=== PATIENT | male | born 1955 | race Caucasian/White ===

== ENCOUNTER 2021-03-15 01:36 | Emergency (ER) | payer BC, SELFPAY ==
--- NOTE | ~2021-03-15 | CT_ITS ---
EXAMINATION: CT ANGIOGRAM OF THE CHEST WITH AND WITHOUT CONTRAST (CT PULMONARY ANGIOGRAM FOR PE) CLINICAL INFORMATION: Reason for Exam Covid Pneumonia? PE? SOB COMPARISON: None TECHNIQUE: Prior to contrast administration, noncontrast localization images were obtained. Subsequently, multidetector volumetric imaging was performed from the thoracic inlet to below the diaphragms following the administration of 100 mL Omnipaque 350 intravenous contrast. No contrast reaction reported Sagittal, coronal, and MIP oblique sagittal reformatted images were obtained on the CT workstation, uploaded to PACS, and reviewed. This CT examination was performed using dose optimization techniques as appropriate, variously including the following: *Automated exposure control *Adjustment of mA and/or kV according to patient size (this includes techniques or standardized protocols for targeted exams where dose is matched to indication/reason for exam; i.e. extremities or head) *Use of iterative reconstruction technique Total exam dose-length product 598 mGy-cm FINDINGS: QUALITY OF STUDY/CONTRAST BOLUS: Satisfactory. PULMONARY ARTERIES: No central or segmental pulmonary emboli. THORACIC AORTA: No dissection. Mild aneurysmal dilatation of ascending aorta measuring up to 4.3 cm. LUNG: No focal consolidation, nodules or masses. Mild diffuse bronchial wall thickening without bronchiectasis. PLEURA: No pleural effusion or pneumothorax. MEDIASTINUM: Normal heart size. No pericardial effusion. No hilar or mediastinal lymphadenopathy. No evidence of septal bowing or right heart strain. CHEST WALL/AXILLA: No axillary or internal mammary lymphadenopathy. OSSEOUS STRUCTURES: No acute or suspicious osseous abnormality. UPPER ABDOMEN: Unremarkable. Simple cyst within the right kidney is benign and requires no further follow-up. Diverticulosis. No evidence of diverticulitis. CT/CT angio chest PE protocol IMPRESSION: * No pulmonary embolism. * Diffuse mild bronchial wall thickening compatible with bronchitis, as can be seen early in COVID. No pneumonitis is evident at this time. * Mild aneurysmal dilatation of ascending aorta measuring up to 4.3 cm. VTE: negative
--- NOTE | ~2021-03-15 | XR_ITS ---
EXAMINATION: XR CHEST CLINICAL INFORMATION: Pneumonia COMPARISON: None TECHNIQUE: Frontal view of the chest was obtained. FINDINGS: Streaky opacities within the lower lungs bilaterally could represent subsegmental atelectasis or infiltrate. No pleural effusion or pneumothorax. Normal heart size and pulmonary vascularity. No acute or suspicious osseous abnormalities. XR/XR chest 1V IMPRESSION: Bilateral lower lung subsegmental atelectasis. Infiltrate could also have this appearance, particularly at the left lung base.
[2021-03-15 01:45] VITALS: BP 196/130; PULSE 71; PULSE 76; RESP 30; TEMP 36.1; O2SAT 92; O2SAT 96; BMI 39.8
--- NOTE | 2021-03-15 01:48 | ECG_ITS ---
Test Reason : SOB Blood Pressure : / mmHG Vent. Rate : 071 BPM Atrial Rate : 071 BPM P-R Int : 170 ms QRS Dur : 080 ms QT Int : 404 ms P-R-T Axes : 069 033 031 degrees QTc Int : 439 ms Normal sinus rhythm Normal ECG No previous ECGs available Referred By: Jigar Gutierrez Electronically Signed By:JONO LUCIANO MD
[2021-03-15] MEDS: Albuterol/Iprat 2.5/0.5MG 3 ML AMPUL.NEB INHALE (01:54)
[2021-03-15 02:01] VITALS: PULSE 71; RESP 30; O2SAT 93
[2021-03-15] MEDS: Albuterol Sulfate (0.083%) 2.5 MG/3 ML VIAL.NEB INHALE (02:01)
[2021-03-15 02:03] LABS: Basophils Absolute Auto 0.1 X10*3/uL (0.0-0.2); Basophils Percent Auto 1.2 % (0-2); Eosinophils Absolute Auto 0.9 X10*3/uL (0.0-0.4); Eosinophils Percent Auto 10.9 % (0-4); Hemoglobin 16.1 g/dl (14.0-18.0); Imm Gran Abs Auto 0.02 X10*3/uL (0.00-0.03); Imm Gran Pct Auto 0.2 % (0.0-0.4); Lymphocytes Absolute Auto 2.9 X10*3/uL (1.2-4.9); Lymphocytes Percent Auto 33.8 % (20-40); MANUAL DIFF FLAG NO; Mean Corpuscular HGB Conc 33.5 g/dl (31.0-36.0); Mean Corpuscular Hemoglobin 32.1 pg (27.0-33.0); Mean Corpuscular Volume 95.6 fL (80.0-98.0); Mean Platelet Volume 9.7 fL (9.4-12.4); Monocytes Percent Auto 12.2 % (2-11); Neutrophils Absolute Auto 3.5 x10*3/uL (2.0-8.3); Neutrophils Percent Auto 41.7 % (45-73); Platelet Count 200 X10*3/uL (160-400); Red Blood Count 5.02 X10*6/uL (4.60-5.80); Red Cell Distribution Width 12.9 % (11.0-16.0); White Blood Count 8.5 X10*3/uL (4.8-10.8)
[2021-03-15 02:10] LABS: Prothrombin Time 11.3 SEC (9.9-13.0)
[2021-03-15 02:13] LABS: Partial Thromboplastin Time 34.1 SEC (24.1-38.0)
[2021-03-15 02:22] LABS: COVID-19 Test Negative (Negative); IDNOW Serial# 9DD0AD1C
[2021-03-15 02:25] LABS: B Type Natriuretic Peptide 29 pg/mL (<100); Troponin-I High Sensitivity 5.8 ng/L (<3.5-35.0)
[2021-03-15 02:26] LABS: Alanine Aminotransferase 31 U/L (0-40); Albumin Level 3.7 g/dL (3.5-5.0); Alkaline Phosphatase 64 U/L (39-117); Anion Gap 11 (12-20); Aspartate Amino Transferase 23 U/L (5-37); Bilirubin Total 0.3 mg/dL (0.0-1.0); Blood Urea Nitrogen 21 mg/dL (9-16); Carbon Dioxide 27 mmol/L (22-29); Chloride 106 mmol/L (96-108); Creatinine Clr Calc Pharmacy 81.3; Estimated Glomerular Filt Rate 52; Glucose Random 156 mg/dL (60-115); Potassium 4.4 mmol/L (3.3-5.1); Sodium 140 mmol/L (135-145); Total Protein 6.4 g/dL (6.5-8.0)
[2021-03-15] MEDS: methylPREDNISolone Sod Succ 125 MG/2 ML VIAL IVPUSH (02:57)
[2021-03-15] MEDS: Magnesium Sulfate/H2O 2 GM/50 ML PIGGYBACK IV (02:57)
--- NOTE | 2021-03-15 03:06 | ED_ITS ---
HPI - Asthma General Chief Complaint: Asthma Stated Complaint: sob Time Seen by Provider: 03/15/21 01:47 Source: patient Mode of arrival: ambulatory Limitations: no limitations History of Present Illness HPI Narrative: C5 year male presents to ED for asthma exacerbation. Patient states shortness of breath began last night. Patient recently exposed to COVID by positive family members. Patient denies any swelling of lower extremities, calf pain, coughing up blood, Fever, body aches, or chills. Related Data Allergies Allergy/AdvReac Type Severity Reaction Status Date / Time No Known Allergies Allergy Verified 03/15/21 01:47 Review of Systems Review of Systems: Yes all other systems are reviewed and are negative PMFSH Social History Social History Advance Directives: No Physical Exam Vital Signs: Vital Signs: Last Vital Signs Temp 97 F 03/15/21 01:45 Pulse 71 03/15/21 02:01 Resp 30 H 03/15/21 02:01 Pulse Ox 92 03/15/21 01:45 Oxygen Flow Rate 2.5 03/15/21 01:45 BMI result Body Mass Index 39.8 Const: General: cooperative, healthy appearing, comfortable, no acute distress, well developed, alert, awake and Physically active Orientation/consciousness: patient oriented x3 HENMT: Head: Yes normal to inspection, Yes No palpable skull fracture present, Yes normocephalic, Yes atraumatic and No abrasion Eyes: General: appearance normal, both eyes and all related structures Neck: Neck: Yes normal visual inspection, Yes full ROM, Yes no lympha denopathy, Yes no meningeal signs, Yes trachea midline, Yes supple, No anterior neck swelling and No tender Chest: Chest palpation & inspection: normal inspection of the chest and normal palpation of entire chest wall Resp: Effort & Inspection: normal respiratory effort and able to speak in complete sentences Auscultation: wheezes expiratory wheezes Cardio: Jugular venous distension: no JVD Heart sounds: S1 normal heart sound present GI: Inspection: Yes normal to inspection and No abdominal wall ecchymosis Palpation (GI): Soft to palpation, not firm, nontender, no guarding and not rigid : General: No CVA tenderness and Yes no CVA tenderness Back/Spine/Pelvis: Back: no CVA tenderness, No CVA tenderness and No back tenderness Skin: General skin exam: no rashes or lesions noted and elasticity normal Neuro: General: patient oriented x3, gait normal, no meningeal signs and CN's II-XI intact bilaterally Cranial nerves: Yes CN's II-XII intact bilaterally Extrem: Other: Lower extremities negative for swelling, pitting edema, or calf tenderness General: Yes normal to inspection and Yes full ROM Psych: Appearance: grossly normal, well kempt and not disheveled Course Course Course Narrative: labs, EKG, asthma meds, and chest x-ray ordered Reevaluation(s) Reevaluation #1: EKG negative STEMI. BNP negative. COVID Negative. Room air O2 sat 91%. Given 2 rounds of albuterol, Solu-Medrol, and magnesium. X-ray showed possible infiltrate versus atelectasis. patient will be sent for a chest CTA to rule out pneumonia and PE. SIgned out to Dr. Palumbo Time: 03:11 MDM - Asthma MDM Narrative Medical decision making narrative: asthma exacerbation Lab Data Result diagrams: 03/15/21 01:57 03/15/21 01:57 Labs: Lab Results 03/15/21 03/15/21 03/15/21 Range/Units 01:57 01:57 01:57 WBC 8.5 (4.8-10.8) X10*3/uL RBC 5.02 (4.60-5.80) X10*6/uL Hgb 16.1 (14.0-18.0) g/dl Hct 48.0 (42.0-52.0) % MCV 95.6 (80.0-98.0) fL MCH 32.1 (27.0-33.0) pg MCHC 33.5 (31.0-36.0) g/dl RDW 12.9 (11.0-16.0) % Plt Count 200 (160-400) X10*3/uL MPV 9.7 (9.4-12.4) fL Immature Gran % (Auto) 0.2 (0.0-0.4) % Neut % (Auto) 41.7 L (45-73) % Lymph % (Auto) 33.8 (20-40) % [place] % (Auto) 12.2 H (2-11) % Eos % (Auto) 10.9 H (0-4) % Baso % (Auto) 1.2 (0-2) % Lymph # (Auto) 2.9 (1.2-4.9) X10*3/uL [place] # (Auto) 1.0 (0.1-1.2) X10*3/uL Eos # (Auto) 0.9 H (0.0-0.4) X10*3/uL Baso # (Auto) 0.1 (0.0-0.2) X10*3/uL Abs Immat Gran (auto) 0.02 (0.00-0.03) X10*3/uL Absolute Neuts (auto) 3.5 (2.0-8.3) x10*3/uL Absolute Nucleated RBC 0.000 (0.0-0.012) X10*3/uL Nucleated RBC % (auto) 0.0 (0.0-0.2) /100WBC PT 11.3 (9.9-13.0) SEC INR 1.0 (0.9-1.1) APTT 34.1 (24.1-38.0) SEC Sodium 140 (135-145) mmol/L Potassium 4.4 (3.3-5.1) mmol/L Chloride 106 (96-108) mmol/L Carbon Dioxide 27 (22-29) mmol/L Anion Gap 11 L (12-20) BUN 21 H (9-16) mg/dL Creatinine 1.37 (0.5-1.4) mg/dL Estim Creat Clear Calc 81.3 Estimated GFR 52 Random Glucose 156 H (60-115) mg/dL Calcium 9.0 (8.4-10.2) mg/dL Total Bilirubin 0.3 (0.0-1.0) mg/dL AST 23 (5-37) U/L ALT 31 (0-40) U/L Alkaline Phosphatase 64 (39-117) U/L Troponin I High Sens (<3.5-35.0) ng/L B-Natriuretic Peptide (<100) pg/mL Total Protein 6.4 L (6.5-8.0) g/dL Albumin 3.7 (3.5-5.0) g/dL COVID-19 ([facility]) (Negative) COVID-19 Clin Com 03/15/21 03/15/21 Range/Units 01:57 01:57 WBC (4.8-10.8) X10*3/uL RBC (4.60-5.80) X10*6/uL Hgb (14.0-18.0) g/dl Hct (42.0-52.0) % MCV (80.0-98.0) fL MCH (27.0-33.0) pg MCHC (31.0-36.0) g/dl RDW (11.0-16.0) % Plt Count (160-400) X10*3/uL MPV (9.4-12.4) fL Immature Gran % (Auto) (0.0-0.4) % Neut % (Auto) (45-73) % Lymph % (Auto) (20-40) % [place] % (Auto) (2-11) % Eos % (Auto) (0-4) % Baso % (Auto) (0-2) % Lymph # (Auto) (1.2-4.9) X10*3/uL [place] # (Auto) (0.1-1.2) X10*3/uL Eos # (Auto) (0.0-0.4) X10*3/uL Baso # (Auto) (0.0-0.2) X10*3/uL Abs Immat Gran (auto) (0.00-0.03) X10*3/uL Absolute Neuts (auto) (2.0-8.3) x10*3/uL Absolute Nucleated RBC (0.0-0.012) X10*3/uL Nucleated RBC % (auto) (0.0-0.2) /100WBC PT (9.9-13.0) SEC INR (0.9-1.1) APTT (24.1-38.0) SEC Sodium (135-145) mmol/L Potassium (3.3-5.1) mmol/L Chloride (96-108) mmol/L Carbon Dioxide (22-29) mmol/L Anion Gap (12-20) BUN (9-16) mg/dL Creatinine (0.5-1.4) mg/dL Estim Creat Clear Calc Estimated GFR Random Glucose (60-115) mg/dL Calcium (8.4-10.2) mg/dL Total Bilirubin (0.0-1.0) mg/dL AST (5-37) U/L ALT (0-40) U/L Alkaline Phosphatase (39-117) U/L Troponin I High Sens 5.8 (<3.5-35.0) ng/L B-Natriuretic Peptide 29 (<100) pg/mL Total Protein (6.5-8.0) g/dL Albumin (3.5-5.0) g/dL COVID-19 ([facility]) Negative (Negative) COVID-19 Clin Com See Note ECG Data Interpretation: normal sinus rhythm. Normal EKG. Ventricular rate 71. Peer into the 170. QRS 80. QTC 439. Negative STEMI Discharge Plan Discharge Clinical Impression: Asthma with acute exacerbation Patient Disposition: Still a Patient
[2021-03-15 04:11] VITALS: BP 122/71; PULSE 59; RESP 17; TEMP 36.4; O2SAT 98
[2021-03-15 04:42] LABS: Troponin-I High Sensitivity 6.4 ng/L (<3.5-35.0)
[2021-03-15] MEDS: iohexoL 350 MG/ML 100 ML INFUS..BTL IV (05:09)
[2021-03-15 06:50] VITALS: BP 137/83; PULSE 65; RESP 22; TEMP 36.6; O2SAT 97
== END 2021-03-15 06:54 | disposition home or self-care (01) ==
PROVIDERS: Physician Assistant; Emergency Provider Emergency Medicine; PCP Family Medicine
DX: J45.901 Unspecified asthma with (acute) exacerbation (principal); Z20.822 Contact with and (suspected) exposure to COVID-19
CPT/HCPCS: 36415; 71045; 71275; 80053; 83880; 84484; 85025; 85610; 85730; 87635; 93005; 94640; 96365; 96366; 96375; 99284; J2930; J3475; Q9967

== ENCOUNTER 2021-05-01 03:40 | Inpatient (IN) | payer BC, SELFPAY ==
[2021-05-01] VITALS (9 sets, daily range): BP systolic 141–182; BP diastolic 80–111; PULSE 65–82; RESP 15–26; TEMP 36.6; O2SAT 94–98; BMI 39.0
--- NOTE | ~2021-05-01 | XR_ITS ---
EXAMINATION: XR CHEST CLINICAL INFORMATION: Shortness of breath COMPARISON: 03/15/2021 TECHNIQUE: Frontal view of the chest was obtained. FINDINGS: Normal symmetric lung volumes. No parenchymal consolidation. No pleural effusion. No pneumothorax. Cardiomediastinal silhouette and pulmonary vascularity are within normal limits. No acute osseous abnormalities. XR/XR chest 1V IMPRESSION: Unremarkable examination.
--- NOTE | 2021-05-01 04:02 | ED_ITS ---
HPI - Asthma General Chief Complaint: Upper Respiratory Symptoms Stated Complaint: Diff Breathing Time Seen by Provider: 05/01/21 04:02 Source: patient Mode of arrival: EMS History of Present Illness HPI Narrative: 65-year-old male with history of hypertension and asthma denies being a smoker who is brought in by EMS for onset of asthma exacerbation at 02:30 in the morning without associated chest pain/palpitations, GI or symptoms. Patient states he is fully COVID-19 vaccinated. Related Data Previous Rx's Medication Instructions Recorded azithromycin 250 mg tablet See Rx Instructions .ROUTE 03/15/21 (Zithromax Z-Andrews) .COMPLEX #6 tab prednisone 10 mg tablet 10 mg PO BID #10 tab 03/15/21 Allergies Allergy/AdvReac Type Severity Reaction Status Date / Time No Known Allergies Allergy Verified 03/15/21 01:47 Review of Systems Review of Systems: Pertinent positives and negatives as stated in HPI 10 point review of systems is otherwise negative. PMFSH Past Medical History Source: nursing notes reviewed Medical History Asthma Hypertension Social History Social History Patient Tobacco Use Status: Never used Tobacco Advance Directives: No Physical Exam Vital Signs: Vital Signs: Last Vital Signs Temp 97.8 F 05/01/21 03:57 Pulse 70 05/01/21 04:19 Resp 25 H 05/01/21 04:19 BP 182/111 H 05/01/21 03:57 Pulse Ox 97 05/01/21 03:57 BMI result Body Mass Index 39.0 VITAL SIGNS: Reviewed. GENERAL: Well developed, well nourished, in no acute distress. HEAD: Normocephalic/atraumatic EYES: PERRLA, EOMI EARS: Ext canals without abnormality OROPHARYNX: no oral lesions noted, posterior pharynx clear NECK: Supple, no adenopathy LUNGS: Decreased breath sounds, minimal expiratory wheeze, tachypnea is present. SpO2<97> CARDIOVASCULAR: Regular rate and rhythm without noted murmurs ABDOMEN: Soft, non-tender, non-distended with bowel sounds. SKIN: Inspection of the skin reveals no rashes NEUROLOGIC: Alert and oriented x 4. Strength and sensation to light touch were grossly intact x 4. Course Course Course Narrative: 65-year-old male with history and clinical presentation consistent with acute asthma exacerbation and less likely to be pneumonia or cardiac in etiology. Review of all investigations otherwise negative for acute findings other than acute asthma exacerbation. Patient has eosinophils noted to be over 9. This case was discussed with the inpatient hospitalist who accepts admission. MDM - Asthma Lab Data Result diagrams: 05/01/21 04:08 05/01/21 04:08 Labs: Lab Results 05/01/21 05/01/21 05/01/21 Range/Units 04:08 04:08 04:08 WBC 8.1 (4.8-10.8) X10*3/uL RBC 5.09 (4.60-5.80) X10*6/uL Hgb 16.5 (14.0-18.0) g/dl Hct 48.6 (42.0-52.0) % MCV 95.5 (80.0-98.0) fL MCH 32.4 (27.0-33.0) pg MCHC 34.0 (31.0-36.0) g/dl RDW 13.2 (11.0-16.0) % Plt Count 184 (160-400) X10*3/uL MPV 9.6 (9.4-12.4) fL Immature Gran % (Auto) 0.2 (0.0-0.4) % Neut % (Auto) 51.0 (45-73) % Lymph % (Auto) 28.0 (20-40) % [place] % (Auto) 10.5 (2-11) % Eos % (Auto) 9.2 H (0-4) % Baso % (Auto) 1.1 (0-2) % Lymph # (Auto) 2.3 (1.2-4.9) X10*3/uL [place] # (Auto) 0.9 (0.1-1.2) X10*3/uL Eos # (Auto) 0.7 H (0.0-0.4) X10*3/uL Baso # (Auto) 0.1 (0.0-0.2) X10*3/uL Abs Immat Gran (auto) 0.02 (0.00-0.03) X10*3/uL Absolute Neuts (auto) 4.1 (2.0-8.3) x10*3/uL Absolute Nucleated RBC 0.000 (0.0-0.012) X10*3/uL Nucleated RBC % (auto) 0.0 (0.0-0.2) /100WBC Sodium 140 (135-145) mmol/L Potassium 4.3 (3.3-5.1) mmol/L Chloride 106 (96-108) mmol/L Carbon Dioxide 28 (22-29) mmol/L Anion Gap 10 L (12-20) BUN 27 H (9-16) mg/dL Creatinine 1.33 (0.5-1.4) mg/dL Estim Creat Clear Calc 82.9 Estimated GFR 54 Random Glucose 170 H (60-115) mg/dL Calcium 8.8 (8.4-10.2) mg/dL Total Bilirubin 0.4 (0.0-1.0) mg/dL AST 22 (5-37) U/L ALT 27 (0-40) U/L Alkaline Phosphatase 62 (39-117) U/L Total Protein 6.4 L (6.5-8.0) g/dL Albumin 3.7 (3.5-5.0) g/dL COVID-19 ([facility]) Negative (Negative) COVID-19 Clin Com See Note ECG Data Attestation: I personally reviewed and interpreted this ECG as follows: Prior ECG tracings: available for review Interpretation: NSR, HR-71, no STEMI, W[place]/QRS/QTC are within normal limits. Critical Care Time Critical Care Time Critical Care Time: Yes Total Critical Care Time: 30 Attestation: I personally attest to this time spent taking care of the patient. Discharge Plan Discharge Clinical Impression: Acute asthma exacerbation, Hypertension Patient Disposition: Admitted As Inpatient Prescriptions: No Action azithromycin [Zithromax Z-Andrews] 250 mg tablet See Rx Instructions .ROUTE .COMPLEX Qty: 6 0RF Rx Instructions: For 250 mg dose pack: take 500 mg today (day 1), then 250 mg for 4 days (days 2-5) prednisone 10 mg tablet 10 mg PO BID Qty: 10 0RF
--- NOTE | 2021-05-01 04:03 | ECG_ITS ---
Test Reason : SOB Blood Pressure : / mmHG Vent. Rate : 071 BPM Atrial Rate : 071 BPM P-R Int : 158 ms QRS Dur : 086 ms QT Int : 416 ms P-R-T Axes : 070 028 032 degrees QTc Int : 452 ms Normal sinus rhythm Normal ECG When compared with ECG of 15-MAR-2021 01:45, No significant change was found Referred By: Francoise Koenig Electronically Signed By:MARCELO RODRÍGUEZ
[2021-05-01] MEDS: methylPREDNISolone Sod Succ 125 MG/2 ML VIAL IVPUSH (04:09)
[2021-05-01] MEDS: Magnesium Sulfate/H2O 2 GM/50 ML PIGGYBACK IV (04:09)
[2021-05-01 04:15] LABS: Basophils Absolute Auto 0.1 X10*3/uL (0.0-0.2); Basophils Percent Auto 1.1 % (0-2); Eosinophils Absolute Auto 0.7 X10*3/uL (0.0-0.4); Eosinophils Percent Auto 9.2 % (0-4); Hematocrit 48.6 % (42.0-52.0); Hemoglobin 16.5 g/dl (14.0-18.0); Imm Gran Abs Auto 0.02 X10*3/uL (0.00-0.03); Imm Gran Pct Auto 0.2 % (0.0-0.4); Lymphocytes Absolute Auto 2.3 X10*3/uL (1.2-4.9); MANUAL DIFF FLAG NO; Mean Corpuscular Hemoglobin 32.4 pg (27.0-33.0); Mean Corpuscular Volume 95.5 fL (80.0-98.0); Mean Platelet Volume 9.6 fL (9.4-12.4); Monocytes Absolute Auto 0.9 X10*3/uL (0.1-1.2); Monocytes Percent Auto 10.5 % (2-11); Neutrophils Absolute Auto 4.1 x10*3/uL (2.0-8.3); Platelet Count 184 X10*3/uL (160-400); Red Blood Count 5.09 X10*6/uL (4.60-5.80); Red Cell Distribution Width 13.2 % (11.0-16.0); White Blood Count 8.1 X10*3/uL (4.8-10.8)
[2021-05-01] MEDS: Albuterol Sulfate (0.083%) 2.5 MG/3 ML VIAL.NEB 10 MG INHALE ×2 (04:15→05:33)
[2021-05-01 04:28] LABS: COVID-19 Test Negative (Negative)
[2021-05-01 04:30] LABS: Alanine Aminotransferase 27 U/L (0-40); Albumin Level 3.7 g/dL (3.5-5.0); Alkaline Phosphatase 62 U/L (39-117); Anion Gap 10 (12-20); Aspartate Amino Transferase 22 U/L (5-37); Bilirubin Total 0.4 mg/dL (0.0-1.0); Blood Urea Nitrogen 27 mg/dL (9-16); Calcium 8.8 mg/dL (8.4-10.2); Carbon Dioxide 28 mmol/L (22-29); Chloride 106 mmol/L (96-108); Creatinine Clr Calc Pharmacy 82.9; Estimated Glomerular Filt Rate 54; Glucose Random 170 mg/dL (60-115); Potassium 4.3 mmol/L (3.3-5.1); Sodium 140 mmol/L (135-145); Total Protein 6.4 g/dL (6.5-8.0)
--- NOTE | 2021-05-01 04:50 | P.HPHOSP_ITS ---
History of Present Illness Date of Service: 05/01/21 Chief Complaint: sob 65-year-old male with a past medical history of hypertension, asthma, ascending aortic aneurysm measuring 4.3 cm; presented to the hospital today with a chief complaint of acute onset shortness of breath. Patient reports that he was doing fine until he went to bed; and workup showed only in the medical having acute shortness of breath, unable to breathe; tried his nebulizers with no improvement; subsequently came to the ER for further evaluation. Denies any fever chills cough. Denies any chest pain palpitations lightheadedness or dizziness. Denies any recent travel or sick contacts. Mentioned that he has been COVID-19 vaccinated Denies any nausea vomiting diarrhea. Denies any urinary symptoms. Review of all other systems is negative except mentioned above ER course: Per ER team patient on presentation noted to be significantly tight on examination; mild respiratory distress; given hour long nebulizer treatment, steroids; placed on supplemental oxygen; patient improved symptomatically; chest x-ray showed no acute findings; labs essentially benign; admitted to the [facility] for [facility] Medical History Asthma Hypertension Social History Patient Tobacco Use Status: Never used Tobacco Advance Directives: No Meds Allergies Allergy/AdvReac Type Severity Reaction Status Date / Time No Known Allergies Allergy Verified 03/15/21 01:47 Active Medications: Current Medications Acetaminophen (Acetaminophen 325 Mg Tablet) 650 mg PO Q6H PRN PRN Reason: Pain, Mild (Pain Scale 1-3) Albuterol/Ipratropium (Albuterol/Iprat 2.5/0.5mg 3 Ml Ampul.Neb) 3 ml INHALE RQ4H WHILE AWAKE GUILHERME Albuterol/Ipratropium (Albuterol/Iprat 2.5/0.5mg 3 Ml Ampul.Neb) 3 ml INHALE RQ4H PRN PRN Reason: Shortness of Breath/Wheezing Enoxaparin Sodium (Enoxaparin Sodium 40 Mg/0.4 Ml Syringe) 40 mg SUBCUT Q24H GUILHERME Famotidine (Famotidine/Pf 20 Mg/2 Ml Vial) 20 mg IVPUSH BID GUILHERME Magnesium Sulfate (Magnesium Sulfate/H2o) 2 gm in 50 mls @ 25 mls/hr IV ONCE ONE Stop: 05/01/21 06:01 Last Infusion: 05/01/21 04:47 Dose: Infused Documented by: Labetalol HCl (Labetalol Hcl 100 Mg/20 Ml Vial) 10 mg IVPUSH Q4H PRN PRN Reason: Sbp > 140 Melatonin (Melatonin 3 Mg Tablet) 6 mg PO BEDTIME PRN PRN Reason: Insomnia Methylprednisolone Sodium Succinate (Methylprednisolone Sod Succ 40 Mg/Ml Vial) 40 mg IVPUSH Q6H GUILHERME Morphine Sulfate (Morphine Sulfate 4 Mg/Ml Cartridge) 1 mg IVPUSH Q4H PRN; Protocol PRN Reason: Pain, SOB Senna (Sennosides 8.6 Mg Tablet) 17.2 mg PO BEDTIME PRN PRN Reason: Constipation Sodium Chloride (0.9 % Sodium Chloride Flush 3 Ml Syringe) 3 ml IVFLUSH QSHIFT [facility] Home Medications Medication Instructions Recorded Confirmed Last Taken Type Flonase 2 spray BID 05/01/21 05/01/21 Unknown History Symbicort 80 mcg BID 05/01/21 05/01/21 Unknown History carvedilol 25 mg tablet 1 tab PO BID 05/01/21 05/01/21 Unknown History fosinopril 20 mg tablet 1 tab PO DAILY 05/01/21 05/01/21 Unknown History Physical Exam Vital Signs and Narrative: Vital Signs: Last Vital Signs Temp 97.8 F 05/01/21 03:57 Pulse 70 05/01/21 04:19 Resp 25 H 05/01/21 04:19 BP 182/111 H 05/01/21 03:57 Pulse Ox 97 05/01/21 03:57 BMI result Body Mass Index 39.0 Gen: Appears be in no acute distress; patient was tachypneic on presentation; but not tachycardic; respiratory rate currently improved to 15 after nebulizer and steroid treatment. HEENT: NCAT, Moist mucosa. Pulmonary: Slightly diminished at the bases; currently moving a; able to finish sentences. On supplemental oxygen. Not in respiratory distress. CVS: Normal S1-S2 Abdomen: BS+, Soft, Nontender Extremities: Warm well perfused Neuro: Alert and awake. Results Labs CBC and Chem 7: 05/01/21 04:08 05/01/21 04:08 Labs: Laboratory Results - last 24 hr 05/01/21 05/01/21 05/01/21 04:08 04:08 04:08 MCV 95.5 MCH 32.4 MCHC 34.0 RDW 13.2 Plt Count 184 MPV 9.6 Immature Gran % (Auto) 0.2 Neut % (Auto) 51.0 Lymph % (Auto) 28.0 [place] % (Auto) 10.5 Eos % (Auto) 9.2 H Baso % (Auto) 1.1 Lymph # (Auto) 2.3 [place] # (Auto) 0.9 Eos # (Auto) 0.7 H Baso # (Auto) 0.1 Abs Immat Gran (auto) 0.02 Absolute Neuts (auto) 4.1 Absolute Nucleated RBC 0.000 Nucleated RBC % (auto) 0.0 Anion Gap 10 L Estim Creat Clear Calc 82.9 Estimated GFR 54 Random Glucose 170 H Calcium 8.8 Total Bilirubin 0.4 AST 22 ALT 27 Alkaline Phosphatase 62 Total Protein 6.4 L Albumin 3.7 COVID-19 ([facility]) Negative COVID-19 Clin Com See Note Assessment and Plan Plan 65-year-old male with a past medical history of asthma, hypertension, aortic aneurysm presented to the hospital with a chief complaint of shortness of breath. Noted to be in acute asthma exacerbation. Admitted for further management. Acute asthma exacerbation: Patient was very tight on presentation; currently improving. Able to speak in full sentences. Continue Solu-Medrol IV Nebulizations standing and p.r.n. Supplemental oxygen p.r.n. Patient had a recent CT scan in March which showed no evidence of pulmonary embolism; noted bronchitis(patient finished course of antibiotics and steroids); Hypertensive urgency: Continue home carvedilol. Patient also has history of aortic aneurysm measuring 4.[address] cm [address] scan in March of 2021. Labetalol p.r.n with a goal blood pressure of less than 140/90 DVT prophylaxis: Lovenox Code status: Full code Quality Stroke Does the patient have a stroke diagnosis?: No VTE Prior VTE?: No VTE Risk Level:: Medical - moderate - high VTE Device Contraindication: Treatment Not Indicated VTE Drug Contraindication: N/A - Med Ordered
[2021-05-01] MEDS: Enoxaparin Sodium 40 MG/0.4 ML SYRINGE SUBCUT (05:44)
[2021-05-01] MEDS: 0.9 % Sodium Chloride Flush 3 ML SYRINGE IVFLUSH (07:39)
[2021-05-01] MEDS: Albuterol/Iprat 2.5/0.5MG 3 ML AMPUL.NEB INHALE ×2 (07:40→11:21)
[2021-05-01] MEDS: Famotidine/PF 20 MG/2 ML VIAL IVPUSH (07:42)
--- NOTE | 2021-05-01 07:43 | PC.NURSE ---
ARRIVES TO OVERFLOW UNIT IN NO ACUTE DISTRESS. NSR IN THE 70'S. 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 RESP AT BEDSIDE FOR UPDRAFT TREATMENT
[2021-05-01 08:45] LABS: MANUAL DIFF FLAG NO
[2021-05-01 08:49] LABS: Basophils Absolute Auto 0.1 X10*3/uL (0.0-0.2); Basophils Percent Auto 0.5 % (0-2); Eosinophils Absolute Auto 0.1 X10*3/uL (0.0-0.4); Eosinophils Percent Auto 0.6 % (0-4); Hematocrit 51.8 % (42.0-52.0); Hemoglobin 17.2 g/dl (14.0-18.0); Imm Gran Abs Auto 0.03 X10*3/uL (0.00-0.03); Imm Gran Pct Auto 0.3 % (0.0-0.4); Lymphocytes Absolute Auto 0.8 X10*3/uL (1.2-4.9); Lymphocytes Percent Auto 8.7 % (20-40); Mean Corpuscular HGB Conc 33.2 g/dl (31.0-36.0); Mean Corpuscular Hemoglobin 31.4 pg (27.0-33.0); Mean Corpuscular Volume 94.7 fL (80.0-98.0); Monocytes Absolute Auto 0.1 X10*3/uL (0.1-1.2); Monocytes Percent Auto 1.4 % (2-11); Neutrophils Absolute Auto 8.5 x10*3/uL (2.0-8.3); Neutrophils Percent Auto 88.5 % (45-73); Platelet Count 178 X10*3/uL (160-400); Red Blood Count 5.47 X10*6/uL (4.60-5.80); Red Cell Distribution Width 13.1 % (11.0-16.0); White Blood Count 9.6 X10*3/uL (4.8-10.8)
[2021-05-01 09:15] LABS: Anion Gap 14 (12-20); Blood Urea Nitrogen 26 mg/dL (9-16); Calcium 8.9 mg/dL (8.4-10.2); Carbon Dioxide 22 mmol/L (22-29); Chloride 107 mmol/L (96-108); Creatinine Clr Calc Pharmacy 99.3; Estimated Glomerular Filt Rate > 60; Glucose Random 152 mg/dL (60-115); Potassium 4.3 mmol/L (3.3-5.1); Sodium 139 mmol/L (135-145)
[2021-05-01] MEDS: methylPREDNISolone Sod Succ 40 MG/ML VIAL IVPUSH (10:06)
[2021-05-01] MEDS: carvediloL 25 MG TABLET PO (13:09)
[2021-05-01] MEDS: lisinopriL 20 MG TABLET PO (13:10)
--- NOTE | 2021-05-01 14:04 | P.DS_ITS ---
DS: Providers Provider Date of Service: 05/01/21 Date of admission: 05/01/21 04:43 Primary care physician: Cooper Maurice MD DS: Summary Hospital Course Hospital Course: Patient was admitted for exacerbation and treated with bronchodilators and steroid and improved rapid, presently without hypoxia, no need for O2, no wheezes--essentially normal examine and will dischrge home with Albuterol and prednisone for total of 5 days of sterod. Time Spent with Patient Time attestation: Total time spent providing and/or coordinating discharge services: Discharge coordination time: Greater than 30 minutes Quality: Stroke Does the patient have a stroke diagnosis?: No Physical Exam Vital Signs: Vital Signs: Last Vital Signs Temp 97.8 F 05/01/21 03:57 Pulse 79 05/01/21 11:21 Resp 18 05/01/21 11:21 BP 147/83 H 05/01/21 10:46 Pulse Ox 95 05/01/21 10:46 BMI result Body Mass Index 39.0 General: AO X 3, no acute distress Resp: CTA bilateral CVS: S1,S2,RRR GI: +BS, NT, no distention Skin: No rash Neuro: motor grossly intact Psych: appropriate affect DS: Data Data Completed and Pending Labs on day of discharge: Laboratory Results - last 24 hr 05/01/21 05/01/21 05/01/21 04:08 04:08 04:08 WBC 8.1 RBC 5.09 Hgb 16.5 Hct 48.6 MCV 95.5 MCH 32.4 MCHC 34.0 RDW 13.2 Plt Count 184 MPV 9.6 Immature Gran % (Auto) 0.2 Neut % (Auto) 51.0 Lymph % (Auto) 28.0 [place] % (Auto) 10.5 Eos % (Auto) 9.2 H Baso % (Auto) 1.1 Lymph # (Auto) 2.3 [place] # (Auto) 0.9 Eos # (Auto) 0.7 H Baso # (Auto) 0.1 Abs Immat Gran (auto) 0.02 Absolute Neuts (auto) 4.1 Absolute Nucleated RBC 0.000 Nucleated RBC % (auto) 0.0 Sodium 140 Potassium 4.3 Chloride 106 Carbon Dioxide 28 Anion Gap 10 L BUN 27 H Creatinine 1.33 Estim Creat Clear Calc 82.9 Estimated GFR 54 Random Glucose 170 H Calcium 8.8 Total Bilirubin 0.4 AST 22 ALT 27 Alkaline Phosphatase 62 Total Protein 6.4 L Albumin 3.7 COVID-19 ([facility]) Negative COVID-19 Clin Com See Note 05/01/21 05/01/21 07:54 07:54 WBC 9.6 RBC 5.47 Hgb 17.2 Hct 51.8 MCV 94.7 MCH 31.4 MCHC 33.2 RDW 13.1 Plt Count 178 MPV 10.0 Immature Gran % (Auto) 0.3 Neut % (Auto) 88.5 H Lymph % (Auto) 8.7 L [place] % (Auto) 1.4 L Eos % (Auto) 0.6 Baso % (Auto) 0.5 Lymph # (Auto) 0.8 L [place] # (Auto) 0.1 Eos # (Auto) 0.1 Baso # (Auto) 0.1 Abs Immat Gran (auto) 0.03 Absolute Neuts (auto) 8.5 H Absolute Nucleated RBC 0.000 Nucleated RBC % (auto) 0.0 Sodium 139 Potassium 4.3 Chloride 107 Carbon Dioxide 22 Anion Gap 14 BUN 26 H Creatinine 1.11 Estim Creat Clear Calc 99.3 Estimated GFR > 60 Random Glucose 152 H Calcium 8.9 Total Bilirubin AST ALT Alkaline Phosphatase Total Protein Albumin COVID-19 ([facility]) COVID-19 Clin Com Discharge Plan Discharge Anticipated Discharge Date/Time: 05/01/21 13:59 Patient Disposition: Home, Self-Care Discharge Diagnosis: Asthma exacerbation Referrals: Cooper Maurice MD [Primary Care Provider] - 1 Week Discharge Medications: New prednisone 20 mg tablet 40 mg PO DAILY Qty: 4 0RF albuterol sulfate 90 mcg/actuation HFA aerosol inhaler 1 inh inhalation QID PRN (Reason: shortness of breath or wheezing) Qty: 8.5 0RF Continued Symbicort 80 mcg BID 0RF carvedilol 25 mg tablet 1 tab PO BID 0RF fosinopril 20 mg tablet 1 tab PO DAILY 0RF Flonase 2 spray BID 0RF Discharge Orders: Discharge Order (Routine); Ordered 05/01/21 Ordered By: Twan Reynoso Diet: advance to usual diet Activity on Discharge: As tolerated Stand Alone Forms: Patient Portal Discharge page Care Plan Goals: prevent rehospitalization for asthma Health Concerns: Asthma Plan of Treatment: Use inhalers and take Prednisone as directed and follow up with your Doctor in a week Assessment: Rubén segura
--- NOTE | 2021-05-01 14:29 | MHC.CM.PN ---
PT REPORTS HE LIVES WITH HIS , DAUGHTER AND SON[place] AND [place]. PT REPORTS HE IS INDEPENDENT WITH ALL CARE AND HAS NO HOME SERVICES P HAS A CPAP, NEBULIZER, BP CUF AND PULSE OX AT HOME PT REPORTS HE HAS A HCP NAMING HIS AND SON, COPY REQUESTED PT CONFIRMS HIS PCP IS GENOVEVA KELLOGG PT IS COVID VACCINATED WITH MODERNA X 3 PT WILL DC HOME TODAY WITH NO SERVICES FAMILY TO TRANSPORT
== END 2021-05-01 15:12 | disposition home or self-care (01) | DRG 141 ==
LOC: HO.ED 04:45 → HO.EDOVER 05:04
PROVIDERS: Admitting Provider Hospitalist; Emergency Provider Student in an Organized Health Care Education/Training Program; PCP Family Medicine; Visit Provider Internal Medicine
DX: J45.901 Unspecified asthma with (acute) exacerbation (principal); I10 Essential (primary) hypertension; I16.0 Hypertensive urgency; Z20.822 Contact with and (suspected) exposure to COVID-19; Z79.51 Long term (current) use of inhaled steroids; Z79.899 Other long term (current) drug therapy
CPT/HCPCS: 36415; 71045; 80048; 80053; 85025; 87635; 93005; 94640; 94644; 94645; 96365; 96366; 96375; 99284; 99285; J1650; J2920; J2930; J3475